=== PATIENT | female | born 1960 | race African-American/Black ===

== ENCOUNTER 2020-04-02 13:46 | Emergency (ER) | payer BC ==
[2020-04-02] MEDS ORDERED: Ondansetron PF 4 MG/2 ML Vial ONE (15:15)
[2020-04-02] MEDS ORDERED: Sodium Chloride 0.9% 1,000 ML ONE (15:15)
[2020-04-02 15:55] LABS: ALT (SGPT) 44 U/L (8-55); AST (SGOT) 48 U/L (5-34); Albumin 3.7 g/dL (3.4-4.8); Alkaline Phosphatase 78 U/L (40-110); Anion Gap 17 mmol/L (10-20); BUN (Urea Nitrogen) 18 mg/dL (9.8-20.1); Bilirubin, Total 0.8 mg/dL (0.2-1.2); Calc. Creatinine Clearance 0 mL/min (70-130); Calcium 8.5 mg/dL (7.8-10.44); Carbon Dioxide 20 mmol/L (23-31); Chloride 108 mmol/L (98-107); Estimated GFR-MDRD 45; Glucose 104 mg/dL (80-115); Lipase 68 U/L (8-78); Protein, Total 7.7 g/dL (6.0-8.3); Sodium 141 mmol/L (136-145)
[2020-04-02 16:10] LABS: #Eosinphils 0.2 thou/uL (0.0-0.7); #Lymphocytes 1.5 thou/uL (1.20-3.40); #Monocytes 0.5 thou/uL (0.11-0.59); #Neutrophils 2.9 thou/uL (1.40-6.50); %Basophils 0.9 % (0.0-1.0); %Eosinophils 4.1 % (0.0-10.0); %Lymphocytes 28.4 % (21.0-51.0); %Monocytes 10.1 % (0.0-10.0); %Neutrophils 56.5 % (42.0-75.0); Mean Corpuscular HGB CONC 31.4 g/dL (32.0-36.0); Mean Corpuscular Hemoglobin 26.5 pg (27.0-31.0); Mean Corpuscular Volume 84.4 fL (78.0-98.0); Mean Platelet Volume 9.8 fL (7.4-10.4); Platelet Count 255 thou/uL (130-400); RBC Distribution Width 12.4 % (11.5-14.5); Red Blood Cell (RBC) Count 3.77 mill/uL (4.20-5.40); White Blood Cell (WBC) Count 5.2 thou/uL (4.8-10.8)
== END 2020-04-02 16:57 | disposition home or self-care (01) ==
LOC: MADERS 13:46
DX: R19.7 Diarrhea, unspecified (principal); R11.2 Nausea with vomiting, unspecified; R53.1 Weakness; Z20.828 Contact with and (suspected) exposure to other viral communicable diseases; J45.909 Unspecified asthma, uncomplicated; Z79.899 Other long term (current) drug therapy
CPT/HCPCS: 36415; 80053; 83605; 83690; 85025; 96374; J2405; J7050

== ENCOUNTER 2020-05-31 10:14 | Emergency (ER) | payer BC, SELFPAY ==
[2020-05-31] MEDS ORDERED: Sodium Chloride 0.9% 1,000 ML ONE (11:36)
[2020-05-31] MEDS ORDERED: diphenhydrAMINE 50 MG/ML VIAL ONE (11:37)
[2020-05-31] MEDS ORDERED: Metoclopramide HCl 10 MG/2 ML VIAL ONE (11:37)
[2020-05-31 12:14] LABS: ALT (SGPT) 21 U/L (8-55); AST (SGOT) 22 U/L (5-34); Albumin 4.1 g/dL (3.4-4.8); Alkaline Phosphatase 86 U/L (40-110); Anion Gap 15 mmol/L (10-20); BUN (Urea Nitrogen) 11 mg/dL (9.8-20.1); Bilirubin, Total 0.4 mg/dL (0.2-1.2); Calc. Creatinine Clearance 0 mL/min (70-130); Calcium 9.3 mg/dL (7.8-10.44); Carbon Dioxide 23 mmol/L (23-31); Chloride 109 mmol/L (98-107); Globulin 3.9 g/dL (2.4-3.5); Glucose 107 mg/dL (80-115); Potassium 3.5 mmol/L (3.5-5.1); Sodium 143 mmol/L (136-145)
--- NOTE | 2020-05-31 12:15 | CT ---
CT HEAD WITHOUT IV CONTRAST COMPARISON: None HISTORY: Headache for 5 days. TECHNIQUE: Axial CT imaging at 5 mm intervals from vertex through skull base without contrast FINDINGS: There is no evidence of an acute infarction, hemorrhage, mass effect, or midline shift. The ventricul ar system is normal in size, shape, and position. Skull base has a normal CT appearance. Visualized paranasal sinuses are clear. Osseous structures appear intact. IMPRESSION: 1. No acute intracranial abnormality demonstrated.
[2020-05-31 12:22] LABS: Eosinophils 21 % (0-10); Hemoglobin 10.9 g/dL (12.0-16.0); Lymphocytes 7 % (21-51); MDiff Complete? YES; Mean Corpuscular HGB CONC 31.9 g/dL (32.0-36.0); Mean Corpuscular Volume 81.4 fL (78.0-98.0); Mean Platelet Volume 7.9 fL (7.4-10.4); Monocytes 3 % (0-10); Neutrophil 49 % (42-75); Platelet Count 344 thou/uL (130-400); Platelet Morphology Comment Appears Adequate; RBC Distribution Width 14.1 % (11.5-14.5); Reactive Lymphocytes 20 % (0-10); Red Blood Cell (RBC) Count 4.18 mill/uL (4.20-5.40); White Blood Cell (WBC) Count 10.9 thou/uL (4.8-10.8)
--- NOTE | 2020-05-31 12:22 | CT ---
EXAM: CT cervical spine PROVIDED CLINICAL HISTORY: Injury to cervical spine. Headache. TECHNIQUE: Contiguous axial CT images are obtained through the cervical spine from the skull base to the T2-3 le michael. Sagittal and coronal reformatted images are provided. COMPARISON: None FINDINGS: No evidence for fracture or traumatic subluxation. Degenerative changes are seen throughout the cervical spine with prominent bridging osteophytes seen anteriorly as well as posterior osteophyte formation and calcification of the posterior longitudinal ligament. There is no high-grade neural foraminal narrowing based on bony encroachment. There is effacement of the ventral subarachnoid space at multiple levels due to disc osteophyte complexes and calcification of the posterior longitudinal ligament with probable slight flattening of the anterior aspect of the spinal cord at multiple levels as well. Absence of the lateral and central aspect of the posterior arch of the C1 vertebral body is present w hich is developmental in etiology. There are midline fusion defects involving spinous processes of the C7 and T1 vertebral bodies. No prevertebral soft tissue swelling apparent. Few minimal peripheral densities are seen in each visualized upper lung zone which may be related to atelectasis or areas of scarring. Calcified granuloma seen in the left upper lobe. Visualized thyroid gland demonstrates a grossly normal nonenhanced CT appearance. IMPRESSION: Degenerative changes cervical spine without fracture or traumatic subluxation..
--- NOTE | 2020-05-31 12:27 | RAD ---
XR Chest Pa Lat STANDARD HISTORY: Chest pain COMPARISON: 07/22/2006 FINDINGS: The heart size is at upper limits of normal. The lungs are well expanded without focal area s of consolidation, pneumothorax or pleural effusions. There is mild prominence of the interstitial markings. Spina bifida occulta is again seen in the C7 and T1 vertebrae.
--- NOTE | 2020-05-31 12:29 | RAD ---
XR Hand Rt 3 View STANDARD HISTORY: Pain and swelling of the right hand FINDINGS: No fracture or dislocation is identified.
--- NOTE | 2020-05-31 12:31 | RAD ---
LEFT WRIST 3 VIEWS: HISTORY: Left wrist pain and swelling FINDINGS: No acute fracture or dislocation is identified. Degenerative changes are present. If there is tenderness in the anatomic snuffbox and symptoms do not improve, a follow-up exam should be obtained in 7-10 days.
[2020-05-31 13:33] LABS: Bilirubin Negative (Negative); Blood, Urine Negative (Negative); Clarity Clear (Clear); Glucose, Urine (Dipstick) Negative (Negative); Ketone, Urine Negative (Negative); Leukocyte Negative (Negative); Nitrite Negative (Negative); Protein, Urine (Dipstick) Negative (Neg-Trace); Specific Gravity, Urine 1.015 (1.005-1.030); Urobilinogen 0.2 mg/dL (Less than 2); pH, Urine 5.5 (5.0-9.0)
[2020-05-31] MEDS ORDERED: cloNIDine 0.1mg/24 Hour PATCH ONE (17:03)
[2020-05-31] MEDS ORDERED: cloNIDine 0.1 MG TAB ONE (17:04)
[2020-05-31] MEDS ORDERED: hydrALAZINE 20 MG/ML VIAL ONE (19:43)
== END 2020-05-31 22:55 | disposition home or self-care (01) ==
LOC: MADERS 10:14
DX: I10 Essential (primary) hypertension (principal); R00.0 Tachycardia, unspecified; J45.909 Unspecified asthma, uncomplicated; Z86.16 Personal history of COVID-19; Z79.899 Other long term (current) drug therapy
CPT/HCPCS: 70450; 71046; 72125; 80053; 81003; 84443; 84484; 85025; 93005; 96374; 96375; J0360; J1200; J2765; J7050

== ENCOUNTER 2020-07-15 04:56 | Emergency (ER) | payer BC, OTHER ==
[2020-07-15] MEDS ORDERED: Aspirin Chewable 81 MG TAB ONE (05:41)
[2020-07-15] MEDS ORDERED: Nitroglycerin 0.4 MG TAB 1 EACH ONE (05:41)
[2020-07-15] MEDS ORDERED: Furosemide 20 MG/2 ML VIAL ONE (05:47)
[2020-07-15] MEDS ORDERED: Furosemide 40 MG/4 ML VIAL ONE (05:47)
[2020-07-15] MEDS ORDERED: Morphine 4 MG/ML VIAL ONE (05:47)
[2020-07-15] MEDS ORDERED: diphenhydrAMINE 12.5 MG/5 ML UDCUP ONE (05:47)
[2020-07-15] MEDS ORDERED: diphenhydrAMINE 50 MG/ML VIAL ONE (05:48)
[2020-07-15 06:00] LABS: Hemoglobin 11.9 g/dL (12.0-16.0); Mean Corpuscular HGB CONC 30.3 g/dL (32.0-36.0); Mean Corpuscular Hemoglobin 25.7 pg (27.0-31.0); Mean Corpuscular Volume 84.8 fL (78.0-98.0); Mean Platelet Volume 8.6 fL (7.4-10.4); Platelet Count 197 thou/uL (130-400); RBC Distribution Width 15.4 % (11.5-14.5); Red Blood Cell (RBC) Count 4.61 mill/uL (4.20-5.40); White Blood Cell (WBC) Count 8.1 thou/uL (4.8-10.8)
[2020-07-15 06:12] LABS: ALT (SGPT) 22 U/L (8-55); AST (SGOT) 20 U/L (5-34); Albumin 4.2 g/dL (3.4-4.8); Alkaline Phosphatase 86 U/L (40-110); Anion Gap 16 mmol/L (10-20); BUN (Urea Nitrogen) 16 mg/dL (9.8-20.1); Bilirubin, Total 0.7 mg/dL (0.2-1.2); CK (CPK) 165 U/L (29-168); Calc. Creatinine Clearance 0 mL/min (70-130); Calcium 9.2 mg/dL (7.8-10.44); Carbon Dioxide 24 mmol/L (23-31); Chloride 107 mmol/L (98-107); Globulin 2.9 g/dL (2.4-3.5); Glucose 112 mg/dL (80-115); Potassium 4.4 mmol/L (3.5-5.1); Protein, Total 7.1 g/dL (5.8-8.1); Sodium 143 mmol/L (136-145)
[2020-07-15 06:27] LABS: Anisocytosis SLIGHT = 6-15 cells (100X) (0-5/hpf); Eosinophils 8 % (0-10); Lymphocytes 36 % (21-51); MDiff Complete? YES; Manual Diff?? YES; Monocytes 8 % (0-10); Neutrophil 48 % (42-75); Platelet Morphology Comment Appears Adequate
--- NOTE | 2020-07-15 07:59 | RAD ---
EXAM: Single view of the chest HISTORY: Chest pain COMPARISON: None FINDINGS: Single view of the chest shows a normal sized cardiomediastinal silhouette. There is no wood dence of consolidation, mass, or pleural effusion. Degenerative changes are seen in the spine. There are bilateral nipple piercings. IMPRESSION: No evidence of acute cardiopulmonary disease
--- NOTE | 2020-07-15 08:42 | CT ---
CT ANGIO OF CHEST AND ABDOMEN AND PELVIS PERFORMED WITH IV CONTRAST ENHANCEMENT WITH 3D RECONSTRUCTIO NS: Date: 07/15/2020 HISTORY: Acute chest pain radiating to back and neck region. Concern for dissection. This exam was done per dissection protocol. FINDINGS: CT ANGIO CHEST: Lung show evidence of some air trapping. There are atelectatic type changes in the bases. No pulmonar y nodules or pleural effusions are identified. No significant mediastinal or hilar adenopathy. There is fairly good pulmonary artery opacification. I see no evidence for pulmonary embolus. The thoracic aorta is normal in caliber and shows no signs f or dissection. CT ANGIO ABDOMEN: There is suggestion of an element of fatty change to the liver. Spleen, pancreas, and gallbladder reg ions appear unremarkable. Right and left adrenal glands are normal. Cortical scarring is seen involving the kidneys, more promi nently in the posterior cortex on the right. Slight dilatation to both ureters. This is probably on t he basis of a distended bladder. There is no significant periaortic or mesenteric adenopathy. CT ANGIO PELVIS: No adenopathy, mass, or free fluid. Appendix region appears unremarkable. IMPRESSION: 1. No evidence for pulmonary embolus. 2. No evidence of aortic aneurysm or dissection. 3. Fatty change of the liver. 4. Cortical scarring involving the kidneys. POS: HUMBERTO
[2020-07-15 08:56] LABS: Troponin I Less than 0.010 ng/mL (< 0.028)
== END 2020-07-15 09:20 | disposition home or self-care (01) ==
LOC: MADERS 04:56
DX: M54.2 Cervicalgia (principal); G89.29 Other chronic pain; M94.0 Chondrocostal junction syndrome [Tietze]; R00.0 Tachycardia, unspecified; I10 Essential (primary) hypertension; M06.9 Rheumatoid arthritis, unspecified; J45.909 Unspecified asthma, uncomplicated; Z79.899 Other long term (current) drug therapy
CPT/HCPCS: 71045; 71275; 74174; 80053; 82550; 83880; 84484; 85025; 85379; 93005; 96374; 96375; J1200; J1940; J2270; Q0163

== ENCOUNTER 2020-11-05 12:42 | Outpatient (CLI) | payer BC, OTHER | END 2020-11-05 12:43 | disposition home or self-care (01) | LOC: MADRAD 12:42 | PROVIDERS: ATTEND Internal Medicine Rheumatology | DX: M06.09 Rheumatoid arthritis without rheumatoid factor, multiple sites (principal) ==

== ENCOUNTER 2023-01-19 21:34 | Emergency (ER) | payer BC, OTHER | END 2023-01-19 22:36 | disposition home or self-care (01) | LOC: MADERS 21:34 | DX: M25.50 Pain in unspecified joint (principal); J02.9 Acute pharyngitis, unspecified; T39.4X5A Adverse effect of antirheumatics, not elsewhere classified, initial encounter; I10 Essential (primary) hypertension | CPT/HCPCS: 96372; 99282; J1040 ==

== ENCOUNTER 2023-03-01 08:32 | Emergency (ER) | payer OTHER ==
[2023-03-01] MEDS ORDERED: methylPREDNISolone Sod Succ/PF 125 MG/2 ML VIAL ONE (08:51)
== END 2023-03-01 09:10 | disposition home or self-care (01) ==
LOC: MADERS 08:32
DX: M06.9 Rheumatoid arthritis, unspecified (principal); I10 Essential (primary) hypertension; J45.909 Unspecified asthma, uncomplicated; Z79.899 Other long term (current) drug therapy
CPT/HCPCS: 96372; 99283; J2930